=== PATIENT | female | born 1965 | race Caucasian/White ===

== ENCOUNTER 2022-07-01 15:39 | Emergency (ER) | payer BC ==
[2022-07-01 16:18] VITALS: TEMP 98.1; BMI 25.8
[2022-07-01] MEDS ORDERED: LACTATED RINGERS SOLUTION 1000 ML INFUS.BAG IV ONE (16:45)
[2022-07-01] MEDS ORDERED: ACETAMINOPHEN 1000 MG/100 ML BAG IVPB ONE (16:45)
[2022-07-01 18:03] LABS: BASO % 1.2 % (0-2.0); EOS % 6.4 % (0-4.5); HEMATOCRIT 45.9 % (32.4-45.2); LYMPH % 43.6 % (8-40); MCH 28.7 pg (25.7-33.7); MCHC 32.6 g/dl (32.0-36.0); MEAN PLT VOLUME 8.2 fl (7.5-11.1); NEUT % 41.8 % (42.8-82.8); PLATELET COUNT 462 10^3/uL (134-434); RBC 5.21 M/mm3 (3.60-5.2); RDW 13.4 % (11.6-15.6); WHITE BLOOD COUNT 10.2 K/mm3 (4.0-10.0)
[2022-07-01 18:04] LABS: PH,URINE 5.5 (5.0-8.0); URINE APPEARANCE CLEAR; URINE BILIRUBIN NEGATIVE (NEGATIVE); URINE COLOR YELLOW; URINE GLUCOSE (UA) NEGATIVE (NEGATIVE); URINE KETONE NEGATIVE (NEGATIVE); URINE LEUK ESTERASE NEGATIVE (NEGATIVE); URINE NITRITE NEGATIVE (NEGATIVE); URINE PROTEIN NEGATIVE (NEGATIVE); URINE UROBILINOGEN 0.2 mg/dL (0.2-1.0)
[2022-07-01 18:27] LABS: CALCIUM 9.8 mg/dL (8.5-10.1)
[2022-07-01 18:28] LABS: ALBUMIN 4.2 g/dl (3.4-5.0); BLOOD UREA NITROGEN 9.5 mg/dL (7-18)
[2022-07-01 18:31] LABS: MAGNESIUM 2.1 mg/dL (1.8-2.4)
[2022-07-01 18:33] LABS: BILIRUBIN,TOTAL 0.4 mg/dL (0.2-1); TOT PROT 7.6 g/dl (6.4-8.2)
[2022-07-01] MEDS ORDERED: ACETAMINOPHEN INJECTION 100 ML IVPB ONE (18:41)
[2022-07-01 20:27] VITALS: BP 130/74; PULSE 85; RESP 18
== END 2022-07-01 20:25 | disposition home or self-care (01) ==
LOC: JER 15:39
PROC: 3E033GC Introduction of Other Therapeutic Substance into Peripheral Vein, Percutaneous Approach (ICD-10-PCS; principal; 2022-07-01)
DX: R42 Dizziness and giddiness (principal); R00.2 Palpitations; W19.XXXA Unspecified fall, initial encounter
CPT/HCPCS: 36415; 70450-TC; 71101-TC-LT-FY; 72125-TC; 73130-TC-RT-FY; 80053; 81003; 83735; 84443; 84484; 85025; 87086; 93005; 93010; 99285-25

== ENCOUNTER 2023-01-12 16:24 | Emergency (ER) | payer BC ==
[2023-01-12 17:00] VITALS: BP 110/51; PULSE 79; RESP 18; TEMP 98.7; BMI 24.3
[2023-01-12] MEDS ORDERED: ACETAMINOPHEN 1000 MG/100 ML BAG IVPB ONE (17:27)
[2023-01-12] MEDS ORDERED: ACETAMINOPHEN INJECTION 100 ML IVPB ONE (17:44)
[2023-01-12 18:34] LABS: PH,URINE 8.5 (5.0-8.0); URINE APPEARANCE CLEAR; URINE BILIRUBIN NEGATIVE (NEGATIVE); URINE COLOR YELLOW; URINE GLUCOSE (UA) NEGATIVE (NEGATIVE); URINE KETONE NEGATIVE (NEGATIVE); URINE LEUK ESTERASE NEGATIVE (NEGATIVE); URINE NITRITE NEGATIVE (NEGATIVE); URINE PROTEIN NEGATIVE (NEGATIVE); URINE UROBILINOGEN 0.2 mg/dL (0.2-1.0)
[2023-01-12 19:23] LABS: BASO % 1.1 % (0-2.0); HEMATOCRIT 41.8 % (32.4-45.2); HEMOGLOBIN 14.2 GM/dL (10.7-15.3); LYMPH % 34.8 % (8-40); MCHC 33.9 g/dl (32.0-36.0); MEAN CELL VOLUME 82.6 fl (80-96); MEAN PLT VOLUME 8.4 fl (7.5-11.1); MONO % 8.9 % (3.8-10.2); NEUT % 47.2 % (42.8-82.8); PLATELET COUNT 373 10^3/uL (134-434); RBC 5.06 M/mm3 (3.60-5.2); RDW 13.8 % (11.6-15.6); WHITE BLOOD COUNT 6.2 K/mm3 (4.0-10.0)
[2023-01-12 19:33] LABS: INR 0.94 (0.83-1.09); PROTHROMBIN TIME (PATIENT) 10.9 SEC (9.7-13.0)
[2023-01-12 19:36] LABS: ACTIVATED PTT 23.3 SECONDS (25.2-36.5)
[2023-01-12 19:41] LABS: CALCIUM 10.1 mg/dL (8.5-10.1)
[2023-01-12 19:42] LABS: ALBUMIN 4.2 g/dl (3.4-5.0); BLOOD UREA NITROGEN 9.9 mg/dL (7-18)
[2023-01-12 19:45] LABS: CREATININE 0.8 mg/dL (0.55-1.3)
[2023-01-12 19:47] LABS: BILIRUBIN,TOTAL 0.7 mg/dL (0.2-1); TOT PROT 8.2 g/dl (6.4-8.2)
[2023-01-12] MEDS ORDERED: SODIUM CHLORIDE 0.9% 500 ML INFUS.BAG IV ONE (20:04)
== END 2023-01-12 21:06 | disposition home or self-care (01) ==
LOC: JER 16:24
PROC: 3E033NZ Introduction of Analgesics, Hypnotics, Sedatives into Peripheral Vein, Percutaneous Approach (ICD-10-PCS; principal; 2023-01-12)
DX: R10.31 Right lower quadrant pain (principal); R14.0 Abdominal distension (gaseous); M54.50 Low back pain, unspecified; R10.11 Right upper quadrant pain; K59.09 Other constipation; D25.9 Leiomyoma of uterus, unspecified
CPT/HCPCS: 36415; 74177-TC; 80053; 81003; 83605; 85025; 85610; 85730; 86850; 86900; 86901; 87086; 99285-25; Q9967